=== PATIENT | female | born 1950 | race Caucasian/White ===

== ENCOUNTER 2020-08-20 08:13 | Outpatient (CLI) | payer MEDICARE, OTHER, SELFPAY ==
--- NOTE | 2020-08-20 08:24 | XR_ITS ---
WS: [id number] Chest 2 views, 08/20/2020 Clinical Data: renal carcinoma Comparison: PA and lateral chest, 04/14/2019. Findings: No nodules, masses or effusions are seen. The heart is normal. The pulmonary vascularity is not increased. No pneumonia or pneumothorax is seen. The diaphragms are flattened. The aortic arch a nd descending aorta shows mild tortuosity. XR/XR chest 2V* [id number] Impression: Atherosclerosis and hyperinflation.
[2020-08-20 09:00] LABS: Basophils # 0.1 10^3/uL (0.0-0.1); Basophils % 0.7 %; Eosinophils # 0.2 10^3/uL (0.0-0.8); Eosinophils % 2.5 %; Hematocrit 41.5 % (37.0-47.0); Hemoglobin 13.3 g/dL (11.5-15.3); Lymphocytes # 1.7 10^3/uL (0.8-4.8); Lymphocytes % 22.3 %; Mean Corpuscular Hemoglobin 30.2 pg (28.0-34.0); Mean Corpuscular Volume 94.1 fL (81-99); Mean Platelet Volume 9.6 fL (7.4-10.4); Monocytes # 0.7 10^3/uL (0.2-0.9); Monocytes % 9.1 %; Neutrophils # 4.87 10^3/uL (1.8-7.7); Neutrophils % 64.9 %; Nucleated Red Blood Cells % 0 %; Platelet Count 210 10^3/cmm (130-400); Red Blood Count 4.41 10^6/uL (4.1-5.3); Red Cell Distribution Width 13.6 % (12.1-15.1); White Blood Count 7.5 10^3/uL (4.0-10.0)
[2020-08-20 09:19] LABS: Alanine Aminotransferase 13 U/L (0-33); Alkaline Phosphatase 89 IU/L (35-105); Anion Gap 16.4 (5-19); Aspartate Amino Transferase 14 U/L (0-32); Blood Urea Nitrogen 17 mg/dL (8-23); Calcium 9.6 mg/dL (8.5-10.5); Carbon Dioxide 21 mmol/L (22-29); Chloride 105 mmol/L (98-107); Globulin 3.5 g/dL (1.3-4.6); Glucose 114 mg/dL (65-115); Osmolality Calculated 288 mOsm/kg (285-295); Potassium 4.4 mmol/L (3.5-5.1); Sodium 138 mmol/L (136-145); Total Bilirubin 0.5 mg/dL (0.15-1.2); Total Protein 7.5 g/dL (6.6-8.7)
== END 2020-08-20 08:14 | disposition home or self-care (01) ==
LOC: RAD 08:19
PROVIDERS: PCP Registered Nurse; Visit Provider Urology
DX: C64.9 Malignant neoplasm of unspecified kidney, except renal pelvis (principal); I70.90 Unspecified atherosclerosis
CPT/HCPCS: 36415; 71046; 80053; 81003; 85025

== ENCOUNTER 2020-11-24 12:41 | Outpatient (CLI) | payer MEDICARE, OTHER, SELFPAY ==
--- NOTE | 2020-11-24 13:00 | XR_ITS ---
WS: [id number] Exam: XR KUB [id number] Date/Time of Exam: 11/24/2020 1:00 PM Reason For Exam: RENAL STONE No bowel obstruction or free air. Tiny questionable 1 mm calcification superimposing the left renal s ilhouette. The right kidney may be surgically absent. There are surgical clips in the right midabdome n. Visualized organ margins are otherwise intact. Degenerative changes of the hips and SI joints. Rou nded pelvic calcifications are noted which are nonspecific. XR/XR KUB [id number] IMPRESSION: 1. Questionable 1 mm calcification superimposing the left renal silhouette that could represent a tiny stone. 2. The right kidney and may be surgically absent. 3. No acute abdominal process.
--- NOTE | 2020-11-24 13:15 | XR_ITS ---
WS: [id number] Exam: XR chest 2V* [id number] Date/Time of Exam: 11/24/2020 1:15 PM Reason For Exam: RENAL CELL CARCINOMA Comparison 08/20/2020. The lungs are hyperinflated and clear. Normal cardiomediastinal structures. Regional bony elements ar e intact. No pleural effusion. XR/XR chest 2V* [id number] IMPRESSION: 1. Pulmonary hyperinflation which may indicate obstructive lung disease. 2. No acute process. No change.
== END 2020-11-24 12:42 | disposition home or self-care (01) ==
LOC: RAD 12:47
PROVIDERS: PCP Registered Nurse; Visit Provider Urology
DX: N20.0 Calculus of kidney (principal); C64.9 Malignant neoplasm of unspecified kidney, except renal pelvis
CPT/HCPCS: 71046; 74018; 80053; 81003; 85025

== ENCOUNTER 2021-03-23 14:12 | Outpatient (CLI) | payer MEDICARE, OTHER, SELFPAY ==
--- NOTE | 2021-03-23 14:22 | XR_ITS ---
WS: [id number] Exam: XR chest 2V* [id number] Date/Time of Exam: 03/23/2021 2:22 PM Reason For Exam: C64.9 - Malignant neoplasm of unspecified kidney, except ... Comparison 11/24/2020. The lungs are hyperinflated and clear. No pulmonary mass, nodule or infiltrate. Normal cardiomediasti nal structures and bony elements. Old healed fracture of the proximal left humerus. XR/XR chest 2V* [id number] IMPRESSION: 1. Pulmonary hyperinflation which may indicate COPD. No acute process.
--- NOTE | 2021-03-23 14:22 | US_ITS ---
WS: [id number] RENAL ULTRASOUND HISTORY: C64.9 - Malignant neoplasm of unspecified kidney, except ... COMPARISON: None available. TECHNIQUE: 2-D and color Doppler imaging of the kidney submitted. Right kidney: RIGHT kidney has been surgically removed. No mass in the renal bed. Left kidney: 10.5 cm x 5.4 cm x 4.7 cm. Normal size kidney. There is a cystic mass inseparable from the lower pole of the LEFT kidney measuri ng 4.6 x 4.2 x 7.6 cm. This has been previously described with no increase in size. No solid componen t. Aorta: Normal. Urinary Bladder: Normal distention. US/US renal BI* [id number] IMPRESSION: 1. Status post RIGHT nephrectomy. 2. Stable cystic mass associated with the lower pole the LEFT kidney. No solid mass LEFT kidney.
== END 2021-03-23 14:13 | disposition home or self-care (01) ==
PROVIDERS: PCP Registered Nurse; Visit Provider Urology
DX: C64.9 Malignant neoplasm of unspecified kidney, except renal pelvis (principal); Z90.5 Acquired absence of kidney
CPT/HCPCS: 71046; 76770; 80053; 81003; 85025

== ENCOUNTER 2021-09-27 14:07 | Outpatient (CLI) | payer MEDICARE, OTHER, SELFPAY ==
--- NOTE | 2021-09-27 14:15 | XRR_ITS ---
PROCEDURE INFORMATION: Exam: XR Chest Exam date and time: 09/27/2021 2:15 PM Age: 71 years old Clinical indication: Condition or disease; Other: Renal cell carcinoma; Additional info: Renal cell carcinoma, *labs TECHNIQUE: Imaging protocol: XR of the chest. Views: 2 views. COMPARISON: CR XR chest 2V* [id number] 03/23/2021 2:40 PM FINDINGS: Lungs: Unremarkable. No consolidation. Pleural spaces: Unremarkable. No pleural effusion. No pneumothorax. Heart/Mediastinum: Unremarkable. No cardiomegaly. Bones/joints: Unremarkable. XR/XR chest 2V* [id number] IMPRESSION: No acute findings. Radiation Dose CTDIVOL = (mGy): DLP = (mGy-cm)
[2021-09-27 16:14] LABS: Alanine Aminotransferase 12 U/L (0-33); Albumin Level 4.7 g/dL (3.5-5.2); Alkaline Phosphatase 100 IU/L (35-105); Blood Urea Nitrogen 18 mg/dL (8-23); Calcium 10.3 mg/dL (8.5-10.5); Carbon Dioxide 23 mmol/L (22-29); Chloride 103 mmol/L (98-107); Globulin 3.1 g/dL (1.3-4.6); Glucose 79 mg/dL (65-115); Osmolality Calculated 293 mOsm/kg (285-295); Sodium 141 mmol/L (136-145); Total Bilirubin 0.5 mg/dL (0.15-1.2); Total Protein 7.8 g/dL (6.6-8.7)
[2021-09-27 16:18] LABS: Anion Gap 19.7 (5-19); Aspartate Amino Transferase 19 U/L (0-32); Potassium 4.7 mmol/L (3.5-5.1)
== END 2021-09-27 14:08 | disposition home or self-care (01) ==
PROVIDERS: PCP Registered Nurse; Visit Provider Urology
DX: C64.9 Malignant neoplasm of unspecified kidney, except renal pelvis (principal)
CPT/HCPCS: 71046; 80053; 81003; 85025

== ENCOUNTER 2022-03-28 14:23 | Outpatient (CLI) | payer MEDICARE, SELFPAY ==
--- NOTE | 2022-03-28 14:30 | XR_ITS ---
WS: [id number] Chest , inspiration and expiration PA, 03/28/2022 Clinical Data: Renal cell carcinoma Comparison: PA and lateral chest, 09/27/2021. Findings: No nodules, masses or effusions are seen. The heart is normal. The pulmonary vascularity is not increased. No pneumonia or pneumothorax is seen. No air trapping is seen on the expiration film. The aortic arch and descending thoracic aorta show calcification and mild tortuosity. XR/XR chest 2V insp/exp [id number] Impression: 1. Atherosclerosis. 2. Negative for air trapping on expiration or inspiration.
== END 2022-03-28 14:24 | disposition home or self-care (01) ==
PROVIDERS: PCP Registered Nurse; Visit Provider Urology
DX: C64.9 Malignant neoplasm of unspecified kidney, except renal pelvis (principal); I25.10 Atherosclerotic heart disease of native coronary artery without angina pectoris; N20.0 Calculus of kidney; R79.89 Other specified abnormal findings of blood chemistry
CPT/HCPCS: 71046; 80053; 81003; 85025; 99213

== ENCOUNTER 2022-12-26 13:45 | Outpatient (CLI) | payer MEDICARE, SELFPAY ==
--- NOTE | 2022-12-26 14:06 | XR_ITS ---
WS: [id number] KUB, AP view, 12/26/2022 Clinical Data: stones Comparison: KUB, 11/24/2020 Findings: No abnormal intraabdominal masses or calcifications are seen. There is no dilatated small bowel or ev idence of obstruction. There is a moderate amount of fecal material in the colon. There are clips to the right of the L4 anant tebral body from surgery. 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 XR/XR KUB portable [id number] Impression: Negative KUB.
--- NOTE | 2022-12-26 15:25 | XR_ITS ---
WS: [id number] Chest 2 views, 12/26/2022 Clinical Data: Renal Cell Carcinoma Comparison: Two-view chest, 03/28/2022 Findings: No nodules, masses or effusions are seen. The heart is normal. The pulmonary vascularity is not increased. No pneumonia or pneumothorax is seen. The aortic arch and descending thoracic aorta s how tortuosity and minimal calcification. There is cystic change in the left humeral head possibly fr om an old healed fracture. XR/XR chest 2V* [id number] Impression: Atherosclerosis.
== END 2022-12-26 13:46 | disposition home or self-care (01) ==
PROVIDERS: PCP Family Medicine; Visit Provider Urology
DX: N20.0 Calculus of kidney (principal); C64.9 Malignant neoplasm of unspecified kidney, except renal pelvis
CPT/HCPCS: 71046; 74018

== ENCOUNTER → 2022-12-26 13:58 | Outpatient (BNVA) | payer MEDICARE, SELFPAY | PROVIDERS: PCP Registered Nurse; Visit Provider Urology | DX: C64.9 Malignant neoplasm of unspecified kidney, except renal pelvis (principal); N20.0 Calculus of kidney | CPT/HCPCS: 36415; 80053; 81003; 85025; 99213 ==

== ENCOUNTER 2024-10-11 09:05 | Emergency (ER) | payer MEDICARE, SELFPAY ==
[2024-10-11] VITALS (10 sets, daily range): BP systolic 125–162; BP diastolic 51–74; PULSE 76–95; RESP 16–22; TEMP 36.6; O2SAT 92–97; BMI 22.3
--- NOTE | 2024-10-11 09:09 | CTR_ITS ---
PROCEDURE INFORMATION: Exam: CT Abdomen And Pelvis With Contrast Exam date and time: 10/11/2024 10:20 AM Age: 74 years old Clinical indication: Abdominal pain; Localized; Right lower quadrant (rlq); Prior surgery; Surgery date: 6+ months; Surgery type: Right nephrectomy, appy, bowel; Patient HX: HX of right renal carcinoma; Additional info: Abd pain TECHNIQUE: Imaging protocol: Computed tomography of the abdomen and pelvis with contrast. Radiation optimization: All CT scans at this facility use at least one of these dose optimization techniques: automated exposure control; mA and/or kV adjustment per patient size (includes targeted exams where dose is matched to clinical indication); or iterative reconstruction. Contrast material: OMNIPAQUE 350; Contrast volume: 80 ml; Contrast route: INTRAVENOUS (IV); COMPARISON: MR abdomen wo/w con* [id number] 03/18/2019 1:20 PM RADIATION DOSE METRICS: Total DLP (mGy-cm): 438.22 FINDINGS: Lungs: There is a left lower lobe compressive atelectasis. Pleural spaces: There is a moderate left pleural effusion. Small right pleural effusion. Coronary arteries: There is mild atherosclerotic calcification of the coronary arteries. Liver: Normal. No mass. Gallbladder and biliary ducts: Normal. No calcified stones. No ductal dilation. Pancreas: Normal. No ductal dilation. Spleen: Normal. No splenomegaly. Adrenal glands: Normal. No mass. Kidneys and ureters: Post right nephrectomy. There is a 1.2 cm simple cyst in the lower pole of the left kidney. There is a 1 mm nonobstructing stone in the interpolar region of the left kidney. There is a rim enhancing collection measuring 4.8 x 3.1 x 7.9 cm in the right nephrectomy bed. Stomach and bowel: Unremarkable. No obstruction. No mucosal thickening. Appendix: There has been an appendectomy. Intraperitoneal space: There is a 15.3 x 5.5 x 24.2 cm rim enhancing collection in the right anterior abdominal wall extending into the anterior aspect of the peritoneal cavity from the level of the left diaphragm to the level of the pelvis. Vasculature: Calcified atheromas of the visualized arteries. Lymph nodes: Unremarkable. No enlarged lymph nodes. Urinary bladder: Unremarkable as visualized. Reproductive: Another collection is seen in the pelvis anterior to the uterus measuring 5.5 x 2.7 cm. Bones/joints: Moderate degenerative disease of bilateral hip joints. Curvature of the lumbar spine convex to the right. The lumbar spine demonstrates moderate degenerative changes at multiple levels. Soft tissues: Surgical changes of laparotomy. CT/CT abdomen pelvis w con* [id number] IMPRESSION: Multiple collections in the abdomen, representing abscesses, the largest in the anterior aspect of the abdominal wall and extending at the anterior aspect of the perineum measuring 24.2 cm. COMMENTS: Consistent with the [employer]'s Incidental Findings Committee white paper (J Am Claude Radiol 2018): Any incidental renal lesion less than 1 cm or classified as too small to characterize, or any incidental cystic renal lesion characterized as simple-appearing, is likely benign. No follow-up imaging is recommended for these lesions per consensus recommendations based on imaging criteria.
--- NOTE | 2024-10-11 09:10 | ED_ITS ---
HPI - Abdominal Pain 2 General: Chief Complaint: Abdominal Pain Stated Complaint: abd pain Time Seen by Provider: 10/11/24 09:06 Source: patient and EMS Mode of arrival: EMS Limitations: no limitations History of Present Illness: 74-year-old female has had a history of hernias she states she had a hernia repair 1 month ago in [place]. States she has been having some pain on the right side of her abdomen for 2 weeks. She states its painful when she touches or moves no pain at rest she denies any fevers denies any diarrhea. Denies any redness or drainage from her incision Associated Symptoms: Denies chills, diarrhea, dysuria, fever(s), nausea and vomiting Related Data Home Medications Medication Instructions Recorded Confirmed acetaminophen 325 mg tablet 325 mg PO QID PRN Pain 11/24/20 10/11/24 (Tylenol) diphenhydramine 25 1 tab PO Q6H PRN pain/sleep 09/27/21 10/11/24 mg-acetaminophen 500 mg tablet (Tylenol PM Extra Strength) hydrocodone 5 mg-acetaminophen 325 1 tab PO Q4H PRN Pain 10/11/24 10/11/24 mg tablet Allergies Allergy/AdvReac Type Severity Reaction Status Date / Time tramadol Allergy rash and Verified 10/11/24 09:17 nauseated Review of Systems 2 Const: Denies: fever(s), chills, body aches or change in appetite ENMT: Denies: throat pain or dental pain Card: Denies: chest pain Resp: Denies: dyspnea GI: Reports: abdominal pain; Denies: nausea, vomiting or diarrhea : Denies: dysuria Musc: Denies: neck pain or back pain Skin/Breast: Denies: rash Neuro: Denies: headache(s) PFSH ED 2 PFSH: Medical History Elevated serum creatinine Left renal stone Punctate left interpolar calculus identified on CT scan during work-up right renal mass ultimately status post right nephrectomy. Renal cell carcinoma Required right nephrectomy. No evidence of recurrence on initial follow-up Surgical History History of nephrectomy Family History Mother , at age 92 Heart disease Father , at age 67 Heart disease Social History Smoking and tobacco/nicotine status: former use of tobacco/nicotine Alcohol intake: never Substance/Drug Use: never Marital status: Current occupational status: retired Physical Exam 2 Const: COMMON NORMALS: no acute distress, patient oriented x3 and healthy appearing HENMT: COMMON NORMALS: normocephalic and atraumatic HEAD & SCALP: n ormocephalic and atraumatic Neck/C-Spine: COMMON NORMALS: full ROM and supple Chest: COMMONS NORMALS: normal inspection of the chest Resp: COMMON NORMALS: normal respiratory effort Cardio: COMMON NORMALS: regular rate, regular rhythm and No murmurs present (Cardio) RATE: regular rate RHYTHM: regular rhythm GI: COMMON NORMALS: Normal to inspection, nondistended, normoactive bowel sounds present, Soft to palpation and no masses PALPATION: Yes Soft to palpation OTHER: incision c/d/i Extremity: COMMON NORMALS: normal to inspection and full ROM Neuro: COMMON NORMALS: patient oriented x3, moves all extremities and no focal motor deficits Psych: COMMON NORMALS: mental status grossly normal, Normal thought process present and cooperative THOUGHT PROCESS: Normal thought process present Skin: COMMON NORMALS: no rashes or lesions noted and no wounds GENERAL SKIN EXAM: no rashes or lesions noted Course 2 Vital Signs: Vital signs: Vital Signs Temperature 97.9 F 10/11/24 09:07 Pulse Rate 83 10/11/24 12:00 Respiratory Rate 18 10/11/24 09:34 Blood Pressure 125/51 10/11/24 11:47 Pulse Oximetry 94 10/11/24 12:00 Oxygen Delivery Me thod Room Air 10/11/24 11:47 MDM - Abdominal Pain Medical Decision Making Patient presents here with abdominal pain she does have an elevated white count CT showed multiple intra-abdominal abscesses patient was seen by her surgeon down here recommended transfer to [facility] for IR drainage. Patient also had original surgery at [facility] I spoke to surgeon there we will transfer there for higher level of care. Medical Records I reviewed the patient's medical records. Lab Data I reviewed the patient's lab results. 10/11/24 09:31 10/11/24 09:31 Labs/Radiology: Radiology Impressions Abdomen/Pelvis CT 10/11/24 09:09 IMPRESSION: Multiple collections in the abdomen, representing abscesses, the largest in the anterior aspect of the abdominal wall and extending at the anterior aspect of the perineum measuring 24.2 cm. COMMENTS: Consistent with the [employer]'s Incidental Findings Committee white paper (J Am Claude Radiol 2018): Any incidental renal lesion less than 1 cm or classified as too small to characterize, or any incidental cystic renal lesion characterized as simple-appearing, is likely benign. No follow-up imaging is recommended for these lesions per consensus recommendations based on imaging criteria. Chest X-Ray 10/11/24 10:30 IMPRESSION: Moderate left pleural effusion with left lower lobe consolidation/collapse. Laboratory Results WBC 16.57 10^3/uL (3.29-11.43) H 10/11/24 09:31 RBC 3.77 10^6/uL (3.85-5.65) L 10/11/24 09:31 Hgb 9.50 g/dL (11.27-16.99) L 10/11/24 09:31 Hct 30.8 % (36-47) L 10/11/24 09:31 MCV 81.7 fl (85-98) L 10/11/24 09:31 MCH 25.2 pg (27-33) L 10/11/24 09:31 MCHC 30.8 g/dL (30-55) 10/11/24 09:31 RDW 16.8 % (12.1-15.1) H 10/11/24 09:31 Plt Count 376 10^3/cmm (157-399) 10/11/24 09:31 MPV 8.2 fL (7.4-10.4) 10/11/24 09:31 Neut % (Auto) 81.8 % 10/11/24 09:31 Lymph % (Auto) 8.1 % 10/11/24 09:31 Wright % (Auto) 8.4 % 10/11/24 09:31 Eos % (Auto) 0.1 % 10/11/24 09:31 Baso % (Auto) 0.4 % 10/11/24 09:31 Neut # (Auto) 13.55 10^3/uL (1.8-7.7) H 10/11/24 09:31 Lymph # (Auto) 1.3 10^3/uL (0.8-4.8) 10/11/24 09:31 Wright # (Auto) 1.4 10^3/uL (0.2-0.9) H 10/11/24 09:31 Eos # (Auto) 0.0 10^3/uL (0.0-0.8) 10/11/24 09:31 Baso # (Auto) 0.1 10^3/uL (0.0-0.1) 10/11/24 09:31 Nucleated RBC % (auto) 0 % 10/11/24 09:31 Nucleated RBCs # 0.0 /100WBC 10/11/24 09:31 Sodium 128 mmol/L (136-145) L 10/11/24 09:31 Potassium 4.2 mmol/L (3.5-5.1) 10/11/24 09:31 Chloride 96 mmol/L (98-107) L 10/11/24 09:31 Carbon Dioxide 20 mmol/L (22-29) L 10/11/24 09:31 Anion Gap 16.2 (5-19) 10/11/24 09:31 BUN 21 mg/dL (8-23) 10/11/24 09:31 Creatinine 1.1 mg/dL (0.5-0.9) H 10/11/24 09:31 GFR Calculation Not Reportable 10/11/24 09:31 Glucose 122 mg/dL (65-115) H 10/11/24 09:31 Calculated Osmolality 270 mOsm/kg (285-295) L 10/11/24 09:31 Lactic Acid 1.7 mmol/L (0.5-2.2) 10/11/24 09:31 Calcium 8.4 mg/dL (8.5-10.5) L 10/11/24 09:31 Total Bilirubin 0.6 mg/dL (0.15-1.2) 10/11/24 09:31 AST 8 U/L (0-32) 10/11/24 09:31 ALT 6 U/L (0-33) 10/11/24 09:31 Alkaline Phosphatase 140 U/L (35-105) H 10/11/24 09:31 Total Protein 6.9 g/dL (6.6-8.7) 10/11/24 09:31 Albumin 2.3 g/dL (3.5-5.2) L 10/11/24 09:31 Globulin 4.6 g/dL (1.3-4.6) 10/11/24 09:31 Lipase 12 U/L (13-60) L 10/11/24 09:31 Urine Color Yellow (Yellow) 10/11/24 09:55 Urine Appearance Cloudy (CLEAR) A 10/11/24 09:55 Urine pH 5.5 (5-7) 10/11/24 09:55 Ur Specific [place] 1.019 (1.005-1.030) 10/11/24 09:55 Urine Protein Trace (Negative) A 10/11/24 09:55 Urine Glucose (UA) Negative (Normal) 10/11/24 09:55 Urine Ketones Negative (Negative) 10/11/24 09:55 Urine Blood Negative (Negative) 10/11/24 09:55 Urine Nitrate Negative (Negative) 10/11/24 09:55 Urine Bilirubin Negative (Negative) 10/11/24 09:55 Urine Urobilinogen 1.0 mg/dL (Negative) 10/11/24 09:55 Ur Leukocyte Esterase 2+ (Negative) A 10/11/24 09:55 Urine RBC 6-10 /hpf (0-2) 10/11/24 09:55 Urine WBC 6-10 /hpf (0-5) 10/11/24 09:55 Ur Squamous Epith Cells 21-50 /hpf (0-5) 10/11/24 09:55 Amorphous Sediment Not Reportable 10/11/24 09:55 Urine Bacteria 4+ /hpf (NONE) H 10/11/24 09:55 Hyaline Casts 4.11 /lpf 10/11/24 09:55 All radiology interpretation(s) finalized by discharge Critical Care Time 2 Critical Care Time: Critical Care Time: Yes Total Critical Care Time: 40 Attestation: The high probability of a clinically significant, sudden or life threatening deterioration of the patient's gi system(s) required my full and direct attention, intervention and personal management. The critical care time is as shown. This time is in addition to time spent performing any reported procedures but includes the following: [x] Data and vital sign review and interpretation [x] Patient assessment, examination and intervention [x] Documentation [x] Medication orders and management Discharge Plan Discharge Condition: Stable Prescriptions: No Action acetaminophen [Tylenol] 325 mg tablet 325 mg PO QID PRN (Reason: Pain) diphenhydramine-acetaminophen [Tylenol PM Extra Strength] 25-500 mg tablet 1 tab PO Q6H PRN (Reason: pain/sleep) hydrocodone-acetaminophen 5-325 mg tablet 1 tab PO Q4H PRN (Reason: Pain) Referrals: Qian Leija FNP [Primary Care Provider] - Coding Level of Care Code ED Supervisor Polishing for Kelton Worley
[2024-10-11] MEDS: morphine 4 mg/mL SDV 1 mL IVP ×2 (09:34→19:00)
[2024-10-11] MEDS: ondansetron 2 mg/ML SDV 2 mL 4 MG IVP ×2 (09:34→19:00)
[2024-10-11 09:37] LABS: Basophils # 0.1 10^3/uL (0.0-0.1); Basophils % 0.4 %; Eosinophils % 0.1 %; Hematocrit 30.8 % (36-47); Lymphocytes # 1.3 10^3/uL (0.8-4.8); Lymphocytes % 8.1 %; Mean Corpuscular HGB Conc 30.8 g/dL (30-55); Mean Corpuscular Hemoglobin 25.2 pg (27-33); Mean Corpuscular Volume 81.7 fl (85-98); Mean Platelet Volume 8.2 fL (7.4-10.4); Monocytes # 1.4 10^3/uL (0.2-0.9); Monocytes % 8.4 %; Neutrophils # 13.55 10^3/uL (1.8-7.7); Neutrophils % 81.8 %; Nucleated Red Blood Cells % 0 %; Platelet Count 376 10^3/cmm (157-399); Red Blood Count 3.77 10^6/uL (3.85-5.65); Red Cell Distribution Width 16.8 % (12.1-15.1); White Blood Count 16.57 10^3/uL (3.29-11.43)
[2024-10-11 09:54] LABS: Alanine Aminotransferase 6 U/L (0-33); Albumin Level 2.3 g/dL (3.5-5.2); Alkaline Phosphatase 140 U/L (35-105); Anion Gap 16.2 (5-19); Aspartate Amino Transferase 8 U/L (0-32); Blood Urea Nitrogen 21 mg/dL (8-23); Calcium 8.4 mg/dL (8.5-10.5); Carbon Dioxide 20 mmol/L (22-29); Chloride 96 mmol/L (98-107); Creatinine Clr Calc Pharmacy 38.7441; Globulin 4.6 g/dL (1.3-4.6); Glucose 122 mg/dL (65-115); Lipase 12 U/L (13-60); Osmolality Calculated 270 mOsm/kg (285-295); Potassium 4.2 mmol/L (3.5-5.1); Sodium 128 mmol/L (136-145); Total Bilirubin 0.6 mg/dL (0.15-1.2); Total Protein 6.9 g/dL (6.6-8.7)
[2024-10-11 10:05] LABS: Lactic Sepsis W/Reflex 1.7 mmol/L (0.5-2.2)
[2024-10-11 10:05] LABS: Bilirubin Urine Negative (Negative); Blood Urine Negative (Negative); Glucose Urine UA Negative (Normal); Ketones Urine Negative (Negative); Leukocyte Esterase Urine 2+ (Negative); Nitrate Urine Negative (Negative); Protein Urine Trace (Negative); Specific Gravity, Urine 1.019 (1.005-1.030); Urine Appearance Cloudy (CLEAR); Urine Color Yellow (Yellow); pH Urine 5.5 (5-7)
[2024-10-11 10:09] LABS: Add Urine Microscopic? YES; Bacteria Urine 4+ /hpf; Hyaline Casts Urine 4.11 /lpf; Squamous Epithelial Cell Urine 21-50 /hpf (0-5)
[2024-10-11] MEDS: iohexol 350 mg/mL 500 mL Btl (per mL) IV (10:22)
--- NOTE | 2024-10-11 10:30 | XRR_ITS ---
PROCEDURE INFORMATION: Exam: XR Chest Exam date and time: 10/11/2024 10:35 AM Age: 74 years old Clinical indication: Shortness of breath; Patient HX: PT here from home via EMS with C/O abd pain x 2 weeks. EMS states that PT had hernia surgery 1 month ago. EMS states hernia is now on the right side, PT reports abd pain when with palpation. PT reports n/v. ; Additional info: SOB TECHNIQUE: Imaging protocol: Radiologic exam of the chest. Views: 1 view. COMPARISON: CR XR chest 2V* [id number] 12/26/2022 3:31 PM FINDINGS: Lungs: There is a left lower lobe consolidation/collapse. Pleural spaces: There is a left pleural effusion. Heart/Mediastinum: Unremarkable. No cardiomegaly. Bones/joints: Moderate degenerative disease of bilateral acromioclavicular joints. There are mild degenerative changes of the glenohumeral joint. XR/XR chest 1V portable [id number] IMPRESSION: Moderate left pleural effusion with left lower lobe consolidation/collapse.
[2024-10-11] MEDS: sodium chloride 0.9% 1,000 ML 999 ML IV (10:33)
--- NOTE | 2024-10-11 11:12 | PM.CONSULT ---
Providers/Reason For Consult Consulting Physician/Specialty*: General Surgery Reason for Consult*: Abdominal abscess after hernia repair Primary Care Provider: MARCO ANTONIO Santacruz History of Present Illness History of Present Illness Selin Morton is a 74 year old female Who has history of major abdominal wall reconstruction as well as colon resection in the past, both procedures were done at [facility] in the [place]. Patient had a hernia repair about 1 month ago and over the last 4 weeks she has become progressively distended with some abdominal pain and lack of appetite. She presented today with those symptoms. Has been having regular bowel movements. A CT scan done in the ED showed evidence of a very large intra-abdominal abscess that was read as possible multiple abscess inside of the abdomen. I was consulted for this finding. After discussing with patient and family member they are not sure what kind of repair the patient had already she has or has not had a mesh inside. Medications/Allergies Home Medications Medication Instructions Recorded Confirmed Last Taken Type acetaminophen 325 mg tablet 325 mg PO QID PRN Pain 11/24/20 10/11/24 Unknown History (Tylenol) diphenhydramine 25 1 tab PO Q6H PRN pain/sleep 09/27/21 10/11/24 Unknown History mg-acetaminophen 500 mg tablet (Tylenol PM Extra Strength) hydrocodone 5 mg-acetaminophen 325 1 tab PO Q4H PRN Pain 10/11/24 10/11/24 Unknown History mg tablet Allergies Allergy/AdvReac Type Severity Reaction Status Date / Time tramadol Allergy rash and Verified 10/11/24 09:17 nauseated PFSH Acute PFSH: Medical History Elevated serum creatinine Left renal stone Punctate left interpolar calculus identified on CT scan during work-up right renal mass ultimately status post right nephrectomy. Renal cell carcinoma Required right nephrectomy. No evidence of recurrence on initial follow-up Surgical History History of nephrectomy Family History Mother , at age 92 Heart disease Father , at age 67 Heart disease Social History Smoking and tobacco/nicotine status: former use of tobacco/nicotine Alcohol intake: never Substance/Drug Use: never Marital status: Current occupational status: retired Vitals/I&O/Wt Last Vital Signs Temp 97.9 F 10/11/24 09:07 Pulse 82 10/11/24 09:07 Resp 18 10/11/24 09:34 BP 162/58 10/11/24 09:07 Pulse Ox 97 10/11/24 09:34 O2 Del Method Room Air 10/11/24 09:07 Weight last 48 hrs Weight 130 lb Physical Exam GI: OTHER: Abdominal examination shows a laparotomy incision that is healing, there is some swelling of the abdominal wall on the right hemiabdomen the area of previous surgical incision. Abdomen is otherwise soft minimally tender Data 10/11/24 09:31 10/11/24 09:31 A&P Assessment and plan (1) Abdominal wall abscess: Plan After complete history, physical examination and review of all available clinical data the following is my assessment. Patient presents with postoperative abscess/possible infected seroma in the setting of recent hernia repair. I have personally evaluated the imaging. This fluid collection is not intra-abdominal, they are in the anterior abdominal wall located between the posterior rectus sheath and the rectus muscle, on the left side the collection appears to extend into the plane above the transversus abdominis all the way to the back, in the right side there is a small defect on the rectus sheath causing the abscess to extend into the anterior abdominal wall. This represents 1 very large fluid collection that can either be an infected seroma or an abscess, since there is no redness in the abdominal wall I will think probably is an infected seroma, due to the extent of the seroma this will require interventional radiology drainage, in the case of having the mesh in the retrorectus space this would allow for possible salvage of the mesh and in the case of there being no mesh it will allow for the abscess to resolve while the patient gets antibiotic treatment preventing a major operation causing a hernia recurrence. There is no IR capability over the weekend in our facility, I recommend that the patient is transferred to higher level of care for additional intervention, in addition patient has a large left pleural effusion that might benefit from thoracentesis or drainage by pulmonology which we also do not have at the moment in our facility. Patient's vital signs are stable she has slightly elevated white count but other than that she is stable for transfer from the general surgery standpoint. I have discussed the patient with ER provider and I have also discussed the plan with patient and family member who are in agreement. I have also explained to the family that ideally we will try to transfer back to the facility where all the operations were done as the main providers have all the medical records and operative notes in case of needing additional surgery. Coding Level of Care Code 70672 Diagnoses Abdominal wall abscess L02.211
[2024-10-11] MEDS: piperacillin-tazobactam 3.375 GM in sodium chloride 0.9% (plus) 50 ML IV ×2 (11:23→17:23)
[2024-10-11] MEDS: VANCOMYCIN ADD-Vantage 1,000 MG in 0.9% NaCl ADD-Vantage 250 ML 250 MG IV (11:59)
--- NOTE | 2024-10-11 14:21 | PC.NURSE ---
called report to Viji Alexis RN at [place], [place] ER to ER. this nurse updated patient on status of transfer.
== END 2024-10-11 19:07 | disposition short-term general hospital (02) ==
PROVIDERS: Emergency Provider Emergency Medicine; PCP Registered Nurse
DX: L02.211 Cutaneous abscess of abdominal wall (principal)
CPT/HCPCS: 36415; 71045; 74177; 80053; 81001; 83605; 83690; 85025; 87040; 96365; 96366; 96367; 96375; 96376; 99285; J2270; J2405; J2543; J3370; J7030; J7050